=== PATIENT | female | born 1960 | race Caucasian/White ===

== ENCOUNTER 2016-10-08 07:32 | Emergency (ER) | payer SELFPAY ==
[2016-10-08 07:39] VITALS: RESP 16
[2016-10-08] MEDS ORDERED: IPRATROPIUM-ALBUTEROL 3 ML NEB INHALATION STA (08:19)
--- NOTE | 2016-10-08 08:27 | ED ---
General Adult HPI - General Chief complaint: Upper Respiratory Infection Stated complaint: POSS PNEUMONIA/BRONCHITIS Time Seen by Provider: 10/08/16 08:10 Source: patient, RN notes reviewed Mode of arrival: ambulatory Limitations: no limitations - History of Present Illness Initial comments: Patient is a 56-year-old out. She states that she recently came back from a flight from [place] feels that symptoms have worsened since. States were lots of sick people on the flight coughing. Patient admits that she has had some increased tightness in her chest. She does admit to a history of pneumonia and states his symptoms feel similar. She denies any other complaints or symptoms at this time. Patient denies any recent fever, chills, shortness of breath, chest pain, back pain, abdominal pain, nausea or vomiting, numbness or tingling , dysuria or hematuria, constipation or diarrhea, headaches or visual changes, or any other complaints. - Related Data Home Medications Medication Instructions Recorded Confirmed Atenolol [Tenormin] 50 mg PO DAILY 06/02/15 06/02/15 Cetirizine HCl [Zyrtec] 10 mg PO DAILY 06/02/15 10/08/16 Naproxen Sodium [Aleve] 440 mg PO BID 10/08/16 10/08/16 Previous Rx's Medication Instructions Recorded Clindamycin HCl [Cleocin] 300 mg PO Q6HR 10 Days 10/08/16 Fluticasone Propionate [Flonase 1 - 2 spray EA NOSTRIL DAILY 5 Days 10/08/16 Allergy Relief] Allergies Allergy/AdvReac Type Severity Reaction Status Date / Time Penicillins Allergy Unknown Verified 10/08/16 07:39 Sulfa (Sulfonamide Allergy Unknown Verified 10/08/16 07:39 Antibiotics) Review of Systems ROS Statement: Those systems with pertinent positive or pertinent negative responses have been documented in the HPI. ROS Other: All systems not noted in ROS Statement are negative. Past Medical History Past Medical History: Hypertension History of Any Multi-Drug Resistant Organisms: None Reported Past Surgical History: Hysterectomy Additional Past Surgical History / Comment(s): sinus surgery Past Psychological History: No Psychological Hx Reported Smoking Status: Never smoker Past Alcohol Use History: Rare Past Drug Use History: None Reported General Exam - General Exam Comments Initial Comments: General: The patient is awake and alert, in no distress, and does not appear acutely ill. Eye: Pupils are equal, round and reactive to light, extra-ocular movements are intact. No nystagmus. There is normal conjunctiva bilaterally. No signs of icterus. Ears, nose, mouth and throat: There are moist mucous membranes and no oral lesions. Neck: The neck is supple, there is no tenderness or JVD. Cardiovascular: There is a regular rate and rhythm. No murmur, rub or gallop is appreciated. Respiratory: Lungs are clear to auscultation, respirations are non-labored, breath sounds are equal. No wheezes, stridor, rales, or rhonchi. Gastrointestinal: Soft, non-distended, non-tender abdomen without masses or organomegaly noted. There is no rebound or guarding present. No CVA tenderness. Bowel sounds are unremarkable. Musculoskeletal: Normal ROM, no tenderness. Strength 5/5. Sensation intact. Pulses equal bilaterally 2+. Neurological: A&O x 3. CN II-XII intact, There are no obvious motor or sensory deficits. Coordination appears grossly intact. Speech is normal. Skin: Skin is warm and dry and no rashes or lesions are noted. Psychiatric: Cooperative, appropriate mood & affect, normal judgment. Limitations: no limitations Course Vital Signs 10/08/16 10/08/16 10/08/16 07:35 08:36 08:44 Temperature 97.7 F Pulse Rate 67 68 68 Respiratory 16 Rate Blood Pressure 174/87 O2 Sat by Pulse 96 Oximetry 10/08/16 09:31 Temperature Pulse Rate 62 Respiratory 16 Rate Blood Pressure 134/75 O2 Sat by Pulse 95 Oximetry Medical Decision Making - Medical Decision Making Patient reexamined at this time shows no signs of distress. Patient's labs been reviewed are unremarkable. EKG normal sinus rhythm. Patient's chest x- ray negative for any sign of pneumonia. Patient does admit to cough congestion over the 2 months. States worse after flight. D-dimer negative. Patient resting comfortably in the stretcher. Does admit to improvement after breathing treatment. Patient will be treated for sinus infection. She states multiple people sick at home with similar symptoms. Patient does have some ALLERGY. Patient is advised follow-up and return if symptoms increase worsen or for any other concerns. - Lab Data Result diagrams: 10/08/16 09:24 10/08/16 09:24 Lab Results 10/08/16 10/08/16 10/08/16 Range/Units 09:24 09:24 09:24 WBC 2.9 L (3.8-10.6) k/uL RBC 4.68 (3.80-5.40) m/uL Hgb 12.6 (11.4-16.0) gm/dL Hct 37.8 (34.0-46.0) % MCV 80.7 (80.0-100.0) fL MCH 26.9 (25.0-35.0) pg MCHC 33.4 (31.0-37.0) g/dL RDW 12.9 (11.5-15.5) % Plt Count 190 (150-450) k/uL Neutrophils % 57 % Lymphocytes % 31 % Monocytes % 7 % Eosinophils % 1 % Basophils % 1 % Neutrophils # 1.7 (1.3-7.7) k/uL Lymphocytes # 0.9 L (1.0-4.8) k/uL Monocytes # 0.2 (0-1.0) k/uL Eosinophils # 0.0 (0-0.7) k/uL Basophils # 0.0 (0-0.2) k/uL PT (9.0-12.0) sec INR (<1.1) APTT (22.0-30.0) sec D-Dimer (<0.60) mg/L FEU Sodium 141 (137-145) mmol/L Potassium 3.9 (3.5-5.1) mmol/L Chloride 103 (98-107) mmol/L Carbon Dioxide 28 (22-30) mmol/L Anion Gap 10 mmol/L BUN 9 (7-17) mg/dL Creatinine 0.56 (0.52-1.04) mg/dL Est GFR (MDRD) Af Amer >60 (>60 ml/min/1.73 sqM) Est GFR (MDRD) Non-Af >60 (>60 ml/min/1.73 sqM) Glucose 105 H (74-99) mg/dL Calcium 9.2 (8.4-10.2) mg/dL Total Bilirubin 0.5 (0.2-1.3) mg/dL AST 25 (14-36) U/L ALT 32 (9-52) U/L Alkaline Phosphatase 74 (38-126) U/L Total Creatine Kinase 76 (30-135) U/L CK-MB (CK-2) 0.7 (0.0-2.4) ng/mL CK-MB (CK-2) Rel Index 0.9 Troponin I <0.012 (0.000-0.034) ng/mL Total Protein 6.8 (6.3-8.2) g/dL Albumin 4.1 (3.5-5.0) g/dL 10/08/16 Range/Units 09:24 WBC (3.8-10.6) k/uL RBC (3.80-5.40) m/uL Hgb (11.4-16.0) gm/dL Hct (34.0-46.0) % MCV (80.0-100.0) fL MCH (25.0-35.0) pg MCHC (31.0-37.0) g/dL RDW (11.5-15.5) % Plt Count (150-450) k/uL Neutrophils % % Lymphocytes % % Monocytes % % Eosinophils % % Basophils % % Neutrophils # (1.3-7.7) k/uL Lymphocytes # (1.0-4.8) k/uL Monocytes # (0-1.0) k/uL Eosinophils # (0-0.7) k/uL Basophils # (0-0.2) k/uL PT 10.0 (9.0-12.0) sec INR 1.0 (<1.1) APTT 25.4 (22.0-30.0) sec D-Dimer 0.49 (<0.60) mg/L FEU Sodium (137-145) mmol/L Potassium (3.5-5.1) mmol/L Chloride (98-107) mmol/L Carbon Dioxide (22-30) mmol/L Anion Gap mmol/L BUN (7-17) mg/dL Creatinine (0.52-1.04) mg/dL Est GFR (MDRD) Af Amer (>60 ml/min/1.73 sqM) Est GFR (MDRD) Non-Af (>60 ml/min/1.73 sqM) Glucose (74-99) mg/dL Calcium (8.4-10.2) mg/dL Total Bilirubin (0.2-1.3) mg/dL AST (14-36) U/L ALT (9-52) U/L Alkaline Phosphatase (38-126) U/L Total Creatine Kinase (30-135) U/L CK-MB (CK-2) (0.0-2.4) ng/mL CK-MB (CK-2) Rel Index Troponin I (0.000-0.034) ng/mL Total Protein (6.3-8.2) g/dL Albumin (3.5-5.0) g/dL Disposition Clinical Impression: Acute sinusitis Disposition: HOME SELF-CARE Condition: Good Instructions: Upper Respiratory Infection (ED) Additional Instructions: Please use medication as discussed. Please follow-up with family doctor in the next 2 days of symptoms have not improved. Please return to emergency room if the symptoms increase or worsen or for any other concerns. Prescriptions: Clindamycin HCl [Cleocin] 300 mg PO Q6HR 10 Days Fluticasone Propionate [Flonase Allergy Relief] 1 - 2 spray EA NOSTRIL DAILY 5 Days Time of Disposition: 10:37
--- NOTE | 2016-10-08 09:08 | XR ---
EXAMINATION TYPE: XR chest 2V DATE OF EXAM: 10/08/2016 9:01 AM COMPARISON: Prior chest x-ray June 02, 2015 HISTORY: Shortness of breath and cough. History of hypertension. TECHNIQUE: Frontal and lateral views of the chest are obtained. FINDINGS: There is no focal air space opacity, pleural effusion, or pneumothorax seen. The cardiac silhouette size is within normal limits. Multilevel spurring in the spine is redemonstrated. IMPRESSION: No acute cardiopulmonary process.
[2016-10-08] MEDS ORDERED: SODIUM CHLORIDE 0.9% 1,000 ML IV STA ×2 (09:11)
[2016-10-08 09:33] VITALS: PULSE 62
[2016-10-08 09:48] LABS: Basophils % (A) 1 %; CH 27.3; Eosinophils % (A) 1 %; HCT 37.8 % (34.0-46.0); HDW 2.62; HGB 12.6 gm/dL (11.4-16.0); Luc # (Auto) 0.11; Luc % (Auto) 4; Lymphocytes # (A) 0.9 k/uL (1.0-4.8); Lymphocytes % (A) 31 %; MCH 26.9 pg (25.0-35.0); MCHC 33.4 g/dL (31.0-37.0); MCV 80.7 fL (80.0-100.0); Mean Platelet Volume 6.8; Monocytes # (A) 0.2 k/uL (0-1.0); Monocytes % (A) 7 %; Neutrophils # (A) 1.7 k/uL (1.3-7.7); Neutrophils % (A) 57 %; RBC 4.68 m/uL (3.80-5.40); RDW 12.9 % (11.5-15.5); WBC 2.9 k/uL (3.8-10.6); WBC (Perox) 3.13
[2016-10-08 09:54] LABS: ALT 32 U/L (9-52); AST 25 U/L (14-36); Alkaline Phosphatase 74 U/L (38-126); Anion Gap 10 mmol/L; Blood Urea Nitrogen 9 mg/dL (7-17); Calcium 9.2 mg/dL (8.4-10.2); Carbon Dioxide 28 mmol/L (22-30); Chloride 103 mmol/L (98-107); Glucose 105 mg/dL (74-99); Non-African American GFR(MDRD) >60 (>60 ml/min/1.73 sqM); Potassium 3.9 mmol/L (3.5-5.1); Sodium 141 mmol/L (137-145); Total Bilirubin 0.5 mg/dL (0.2-1.3); Total Protein 6.8 g/dL (6.3-8.2)
[2016-10-08 10:00] LABS: Partial Thromboplastin Time 25.4 sec (22.0-30.0)
[2016-10-08 10:04] LABS: Creatine Kinase 76 U/L (30-135)
[2016-10-08 10:17] LABS: Creatine Kinase MB 0.7 ng/mL (0.0-2.4); Troponin I <0.012 ng/mL (0.000-0.034)
[2016-10-08 10:56] VITALS: BP 140/80; TEMP 98.5
== END 2016-10-08 11:13 | disposition home or self-care (01) ==
LOC: EC 07:32
DX: J01.90 Acute sinusitis, unspecified (principal); R07.89 Other chest pain; I10 Essential (primary) hypertension; Z79.1 Long term (current) use of non-steroidal anti-inflammatories (NSAID); Z79.899 Other long term (current) drug therapy; Z88.0 Allergy status to penicillin; Z88.2 Allergy status to sulfonamides; Z98.890 Other specified postprocedural states
CPT/HCPCS: 36415; 71020; 80053; 82550; 82553; 84484; 85025; 85379; 85610; 85730; 93005; 94640; 99284

== ENCOUNTER → 2020-06-05 | Outpatient (CLI) | payer BC | END | disposition home or self-care (01) | LOC: LABWHC1 10:35 | PROVIDERS: ATTEND Nurse Practitioner Adult Health | DX: R05 Cough (principal); R50.9 Fever, unspecified | CPT/HCPCS: U0003; C9803 ==

== ENCOUNTER 2021-12-24 09:11 | Emergency (ER) | payer BC ==
[2021-12-24] MEDS ORDERED: SODIUM CHLORIDE 0.9% 1,000 ML IV STA (09:25)
[2021-12-24] MEDS ORDERED: METOCLOPRAMIDE 5 MG/ML 2 ML VIAL IVP STA (09:26)
[2021-12-24] MEDS ORDERED: MECLIZINE 12.5 MG TAB PO STA (09:26)
--- NOTE | 2021-12-24 09:33 | ED ---
General Adult HPI - General Chief complaint: Weakness Stated complaint: hypertension, lightheaded Time Seen by Provider: 12/24/21 09:19 Source: patient, RN notes reviewed Mode of arrival: ambulatory Limitations: no limitations - History of Present Illness Initial comments: Patient is a pleasant [age]-year-old female presenting to the emergency Department with concerns for headache. Patient has been feeling lightheaded for the past several days, occasional vertigo/spinning type sensation, none at this time. Patient did have headache this started a couple hours ago while at work. Headache is rated 8/10. No nausea vomiting. No history of chronic headaches. No weakness. No confusion. No speech or visual problems. Patient felt when dizziness got worse a few days ago that she was near syncopal. Patient never passed out or lost consciousness. blood pressure was 165/95 - Related Data Home Medications Medication Instructions Recorded Confirmed Biotin 5 mg PO DAILY 12/24/21 12/24/21 Cetirizine HCl [Zyrtec] 10 mg PO DAILY 12/24/21 12/24/21 Cholecalciferol [Vitamin D3 (25 25 mcg PO DAILY 12/24/21 12/24/21 Mcg = 1000 Iu)] Cyanocobalamin (Vitamin B-12) 1,000 mcg PO DAILY 12/24/21 12/24/21 [Vitamin B-12] Furosemide [Lasix] 20 mg PO DAILY PRN 12/24/21 12/24/21 Hydroxychloroquine Sulfate 200 mg PO BID 12/24/21 12/24/21 [Plaquenil] Ibuprofen [Motrin] 800 mg PO Q8H PRN 12/24/21 12/24/21 Multivitamins, Thera [Multivitamin 1 tab PO DAILY 12/24/21 12/24/21 (formulary)] Telmisartan 40 mg PO HS 12/24/21 12/24/21 Allergies Allergy/AdvReac Type Severity Reaction Status Date / Time Penicillins Allergy Rash/Hives Verified 12/24/21 10:51 Sulfa (Sulfonamide Allergy Anaphylaxis Verified 12/24/21 10:51 Antibiotics) Review of Systems ROS Statement: Those systems with pertinent positive or pertinent negative responses have been documented in the HPI. ROS Other: All systems not noted in ROS Statement are negative. Constitutional: Denies: fever Eyes: Denies: eye pain ENT: Denies: ear pain Respiratory: Denies: cough Cardiovascular: Denies: chest pain Endocrine: Denies: fatigue Gastrointestinal: Denies: abdominal pain Genitourinary: Denies: dysuria Musculoskeletal: Denies: back pain Skin: Denies: rash Neurological: Reports: headache, vertigo (Occasional). Denies: weakness, confusion Past Medical History Past Medical History: Hypertension, Rheumatoid Arthritis (RA) History of Any Multi-Drug Resistant Organisms: None Reported Past Surgical History: Cholecystectomy, Hysterectomy Additional Past Surgical History / Comment(s): sinus surgery Past Psychological History: No Psychological Hx Reported Smoking Status: Never smoker Past Alcohol Use History: Occasional Past Drug Use History: Marijuana - Past Family History Father Family Medical History: Cancer, Congestive Heart Failure (CHF), COPD, Diabetes Mellitus General Exam Limitations: no limitations General appearance: alert, in no apparent distress Head exam: Present: atraumatic, normocephalic Eye exam: Present: normal appearance, PERRL, EOMI ENT exam: Present: normal oropharynx Neck exam: Present: normal inspection Respiratory exam: Present: normal lung sounds bilaterally Cardiovascular Exam: Present: regular rate, normal rhythm Expanded Peripheral pulses: 2+: Radial (R), Radial (L), Posterior Tibialis (R), Posterior Tibialis (L) GI/Abdominal exam: Present: soft. Absent: tenderness, guarding Extremities exam: Present: normal inspection. Absent: pedal edema, calf tenderness Neurological exam: Present: alert, oriented X3, CN II-XII intact. Absent: motor sensory deficit Expanded Neurological exam: Present: protecting the airway Patient oriented to: Present: person, place, time Speech: Present: fluid speech Cranial nerves: EOM's Intact: Normal, Facial Sensation: Normal Sensory exam: Upper Extremity Light Touch: Normal, Lower Extremity Light Touch: Normal Motor strength exam: RUE: 5, LUE: 5, RLE: 5, LLE: 5 Eye Response: (4) open spontaneously Motor Response: (6) obeys commands Verbal Response: (5) oriented Psychiatric exam: Present: normal affect, normal mood Skin exam: Present: normal color Course Vital Signs 12/24/21 12/24/21 12/24/21 09:14 10:33 11:07 Temperature 97.9 F 98.1 F Pulse Rate 70 66 69 Respiratory 16 20 18 Rate Blood Pressure 157/90 173/84 172/89 O2 Sat by Pulse 97 98 100 Oximetry 12/24/21 12:01 Temperature 97.6 F Pulse Rate 60 Respiratory 16 Rate Blood Pressure 167/97 O2 Sat by Pulse 98 Oximetry EKG Findings - EKG Comments: EKG Findings:: Sinus rhythm with rate of 60. First-degree AV block W[place] 203. QRS 105. QT 421. QTC 422. Normal axis. Normal QRS. No acute ST change. Medical Decision Making - Medical Decision Making Patient feeling much better and requesting discharge. Patient updated on results and follow-up. - Lab Data Result diagrams: 12/24/21 10:17 12/24/21 10:17 Lab Results 12/24/21 12/24/21 12/24/21 Range/Units 10:17 10:17 10:17 WBC 7.0 (3.8-10.6) k/uL RBC 4.71 (3.80-5.40) m/uL Hgb 12.6 (11.4-16.0) gm/dL Hct 38.8 (34.0-46.0) % MCV 82.4 (80.0-100.0) fL MCH 26.8 (25.0-35.0) pg MCHC 32.6 (31.0-37.0) g/dL RDW 12.4 (11.5-15.5) % Plt Count 214 (150-450) k/uL MPV 7.4 Neutrophils % 67 % Lymphocytes % 25 % Monocytes % 5 % Eosinophils % 1 % Basophils % 1 % Neutrophils # 4.6 (1.3-7.7) k/uL Lymphocytes # 1.8 (1.0-4.8) k/uL Monocytes # 0.4 (0-1.0) k/uL Eosinophils # 0.1 (0-0.7) k/uL Basophils # 0.1 (0-0.2) k/uL PT 10.0 (9.0-12.0) sec INR 0.9 (<1.2) APTT 24.6 (22.0-30.0) sec Sodium 138 (137-145) mmol/L Potassium 3.6 (3.5-5.1) mmol/L Chloride 101 (98-107) mmol/L Carbon Dioxide 27 (22-30) mmol/L Anion Gap 10 mmol/L BUN 19 H (7-17) mg/dL Creatinine 0.62 (0.52-1.04) mg/dL Est GFR (CKD-EPI)AfAm >90 (>60 ml/min/1.73 sqM) Est GFR (CKD-EPI)NonAf >90 (>60 ml/min/1.73 sqM) Glucose 89 (74-99) mg/dL Calcium 9.9 (8.4-10.2) mg/dL Total Bilirubin 0.4 (0.2-1.3) mg/dL AST 25 (14-36) U/L ALT 18 (4-34) U/L Alkaline Phosphatase 93 (38-126) U/L Total Protein 7.8 (6.3-8.2) g/dL Albumin 5.0 (3.5-5.0) g/dL - Radiology Data Radiology results: report reviewed (CT brain shows no acute process. CT angios is no significant abnormality. Mild arythematous change carotid bulb.) Disposition Clinical Impression: Cephalgia, Lightheadedness Disposition: HOME SELF-CARE Condition: Stable Instructions (If sedation given, give patient instructions): Acute Headache (ED), Lightheadedness (ED) Additional Instructions: Please do follow-up with your primary care physician in the next day or 2 for recheck, number provided. Return for increased dizziness, falling, confusion, weakness, headache, worsening or changing symptoms or other concerns. Is patient prescribed a controlled substance at d/c from ED?: No Referrals: Wilmar Herron MD [STAFF PHYSICIAN] - 1-2 days Scott Felder III, MD [STAFF PHYSICIAN] - 1-2 days Time of Disposition: 12:55
[2021-12-24 10:31] LABS: Basophils # (A) 0.1 k/uL (0-0.2); Basophils % (A) 1 %; Eosinophils # (A) 0.1 k/uL (0-0.7); Eosinophils % (A) 1 %; HCT 38.8 % (34.0-46.0); HGB 12.6 gm/dL (11.4-16.0); Lymphocytes # (A) 1.8 k/uL (1.0-4.8); Lymphocytes % (A) 25 %; MCH 26.8 pg (25.0-35.0); MCHC 32.6 g/dL (31.0-37.0); MCV 82.4 fL (80.0-100.0); Mean Platelet Volume 7.4; Monocytes # (A) 0.4 k/uL (0-1.0); Monocytes % (A) 5 %; Neutrophils # (A) 4.6 k/uL (1.3-7.7); Neutrophils % (A) 67 %; Platelet Count 214 k/uL (150-450); RBC 4.71 m/uL (3.80-5.40); RDW 12.4 % (11.5-15.5)
[2021-12-24 10:40] LABS: INR 0.9 (<1.2); Partial Thromboplastin Time 24.6 sec (22.0-30.0)
[2021-12-24 10:41] LABS: ALT 18 U/L (4-34); AST 25 U/L (14-36); African American GFR (CKD) >90 (>60 ml/min/1.73 sqM); Alkaline Phosphatase 93 U/L (38-126); Anion Gap 10 mmol/L; Blood Urea Nitrogen 19 mg/dL (7-17); Calcium 9.9 mg/dL (8.4-10.2); Carbon Dioxide 27 mmol/L (22-30); Chloride 101 mmol/L (98-107); Glucose 89 mg/dL (74-99); Non-African American GFR(CKD) >90 (>60 ml/min/1.73 sqM); Potassium 3.6 mmol/L (3.5-5.1); Sodium 138 mmol/L (137-145); Total Bilirubin 0.4 mg/dL (0.2-1.3); Total Protein 7.8 g/dL (6.3-8.2)
[2021-12-24] MEDS ORDERED: diphenhydrAMINE 50 MG/ML 1 ML VIAL IVP STA (10:47)
--- NOTE | 2021-12-24 11:07 | CT ---
EXAMINATION TYPE: CT brain wo con DATE OF EXAM: 12/24/2021 HISTORY: HTN. Syncopal episode. Headache. CT DLP: 1158.4 mGycm. Automated Exposure Control for Dose Reduction was Utilized. TECHNIQUE: CT scan of the head is performed without contrast. COMPARISON: CT brain June 02, 2015. FINDINGS: There is no acute intracranial hemorrhage or midline shift identified. There is mild diff use ventricular and sulcal prominence consistent with diffuse age-related cerebral atrophy. Reynolds-whit e matter differentiation is maintained. There there is a small mucous retention cyst or polyp in the inferior left maxillary sinus axial image 10 otherwise paranasal sinuses are clear. Globes are intact bilaterally. IMPRESSION: No acute intracranial hemorrhage or midline shift. No significant change from prior.
[2021-12-24 12:03] VITALS: TEMP 97.6
--- NOTE | 2021-12-24 12:11 | CT ---
EXAMINATION TYPE: CT angio head neck DATE OF EXAM: 12/24/2021 HISTORY: Headache, Dizziness, Syncopal episode COMPARISON: CT brain same date CT DLP: 731.8 mGycm. Automated Exposure Control for Dose Reduction was Utilized. TECHNIQUE: CTA scan of the head and neck is performed without and with IV Contrast, patient injected with 65 ml mL of Isovue 370, axial images are obtained, coronal and sagittal reformatted images are reviewed. 3D reconstructed images are created on an independent workstation and reviewed. FINDINGS: Carotid/Vascular Structures: Transverse aorta, innominate artery, left and right common carotid, left and right subclavian arteries are widely patent, vertebral arteries are patent, internal and externa l carotid arteries are patent, atheromatous changes present at the origin of the proximal internal ca rotid artery in the right. Approximately 50% diameter reduction is suspected of the proximal internal carotid artery on the right, no significant stenosis on the left. Anterior posterior circulation patent within the brain. No evident stenosis, aneurysm, dissection, or embolus Other: Air within the right subclavian vein likely due to intravenous administration during the cour se of the exam. IMPRESSION: No significant abnormality is seen. Mild atheromatous change of the carotid bulb, proxim al internal carotid artery on the right, carotid artery Doppler duplex could be performed for confirm ation of mild stenosis NASCET criteria was used in interpretation of this exam?
[2021-12-24] MEDS ORDERED: KETOROLAC 15 MG/ML 1 ML VIAL IVP STA (12:16)
[2021-12-24 13:23] VITALS: BP 154/87; PULSE 65; RESP 18
== END 2021-12-24 13:16 | disposition home or self-care (01) ==
LOC: EC 09:11
DX: R51.9 Headache, unspecified (principal); R42 Dizziness and giddiness; I10 Essential (primary) hypertension; Z88.0 Allergy status to penicillin; Z88.2 Allergy status to sulfonamides; Z79.899 Other long term (current) drug therapy
CPT/HCPCS: 36415; 93005; 80053; 85025; 85610; 85730; 70496; 70450; 70498; 99284; 96374; 96375; 96361; J1200; J2765; J1885; Q9967

== ENCOUNTER → 2022-02-14 | Outpatient (CLI) | payer BC ==
--- NOTE | 2022-02-15 09:48 | CA ---
Stress Echo Report Taryn Cross Age: 61 Gender: F : 1960 Exam Date: 02/14/2022 09:39 Exam Location: [facility] Stress Ht (in): 63 Wt (lb): 209 Ordering Physician: Wilmar Herron MD Referring Physician: Wilmar Herron MD [employer] Ironworker: Bharati Alcaraz RDCS Technologist Procedure CPT: Indication: R0789 ICD-9 Codes: Rhythm: Patient History: Syncope, Chest pressure Cardiac Medications: Medications in past 24 hours: Contrast: Stress Results Protocol: Nlis Total dose(mL): Exercise Duration (min:sec): 8.[address] Depression (mm): Angina Score: Das Score: METS: 10.3 Resting HR: 72 Resting BP: 151 / 78 Peak HR: 137 Peak BP: 181 / 80 Max Predicted HR: 157 87 % Max Predicted HR Target HR: 133 Double Product: 36095 Stress Summary: BP Response: Reason for Termination: Reached target heart rate or work-load Cardiac Symptoms: Dyspnea ECG Analysis Resting ECG: Normal sinus rhythm without any significant ST-T changes Stress ECG: Sinus tachycardia without any ST segment changes to suggest ischemia Arrhythmia: No significant arrhythmia Echo Analysis Resting Echo: Normal wall motion wall thickening of all segments Peak Echo Analysis: Good augmentation of left ventricular wall motion wall thickening of all segments MEASUREMENTS (Male/Female) Normal Values CONCLUSIONS Patient walked for 8 minutes 56 seconds on a standard Nils protocol and achieved a maximal heart rate of 137 bpm which is more than 85% of predicted maximal. He did not have any anginal symptoms. He had some shortness of breath at peak exercise. There were no ST segment changes to indicate ischemia. There was no significant arrhythmia. This is a negative stress test with fair exercise capacity Baseline echo images reveal normal wall motion wall thickening of all segments. At peak exercise there was good augmentation of wall motion wall thickening of all segments suggesting that there is no evidence of stress-induced ischemia on this study Normal stress test by EKG criteria with fair exercise capacity Normal stress echocardiogram without evidence of ischemia Dr. Bee Betancur MD (Electronically Signed) Final Date: 15 February 2022 09:47
== END | disposition home or self-care (01) ==
LOC: RADNMMAIN 09:09
PROVIDERS: ATTEND Family Medicine
DX: R07.89 Other chest pain (principal)
CPT/HCPCS: 93351

== ENCOUNTER 2022-07-05 09:33 | Day surgery (SDC) | payer BC ==
[2022-06-29 15:48] VITALS: BMI 37.2
[~2022-07-05 09:33] MED LIST: LACTATED RINGERS 1,000 ML IV SCH
[2022-07-05 09:58] VITALS: TEMP 97.7
[2022-07-05] MEDS ORDERED: LIDOCAINE 2% INJ 20 MG/ML (2 ML VIAL) ONE (10:40)
[2022-07-05] MEDS ORDERED: PROPOFOL 10 MG/ML 20 ML VIAL IV ONE (10:40)
--- NOTE | 2022-07-05 10:42 | P.GSHP ---
History of Present Illness H&P Date: 07/05/22 Chief Complaint: Colon cancer screening 62-year-old female here today for colonoscopy. She had a colonoscopy at age 48 that was normal. Patient with intermittent loose stools after her gallbladder surgery a few years ago. No family history of colon cancer. Past Medical History Past Medical History: Hypertension, Rheumatoid Arthritis (RA) Additional Past Medical History / Comment(s): foot fracture right s/p fall History of Any Multi-Drug Resistant Organisms: None Reported Past Surgical History: Cholecystectomy, Hysterectomy Additional Past Surgical History / Comment(s): sinus surgery, foot surgery Past Anesthesia/Blood Transfusion Reactions: Postoperative Nausea & Vomiting (PONV) Smoking Status: Never smoker - Past Family History Father Family Medical History: Cancer, Congestive Heart Failure (CHF), COPD, Diabetes M ellitus Medications and Allergies Home Medications Medication Instructions Recorded Confirmed Type Biotin 5 mg PO DAILY 12/24/21 06/29/22 History Cetirizine HCl [Zyrtec] 10 mg PO DAILY 12/24/21 06/29/22 History Cholecalciferol [Vitamin D3 (25 25 mcg PO DAILY 12/24/21 06/29/22 History Mcg = 1000 Iu)] Cyanocobalamin (Vitamin B-12) 1,000 mcg PO DAILY 12/24/21 06/29/22 History [Vitamin B-12] Furosemide [Lasix] 20 mg PO DAILY PRN 12/24/21 06/29/22 History Hydroxychloroquine Sulfate 200 mg PO BID 12/24/21 06/29/22 History [Plaquenil] Ibuprofen [Motrin] 800 mg PO Q8H PRN 12/24/21 06/29/22 History Multivitamins, Thera [Multivitamin 1 tab PO DAILY 12/24/21 06/29/22 History (formulary)] Telmisartan 40 mg PO HS 12/24/21 06/29/22 History Allergies Allergy/AdvReac Type Severity Reaction Status Date / Time Penicillins Allergy Rash/Hives Verified 07/05/22 09:53 Sulfa (Sulfonamide Allergy Anaphylaxis Verified 07/05/22 09:53 Antibiotics) Surgical - Exam Vital Signs Temp Pulse Resp BP Pulse Ox 97.7 F 70 16 171/80 98 07/05/22 09:57 07/05/22 09:57 07/05/22 09:57 07/05/22 09:57 07/05/22 09:57 Physical exam: General: Well-developed, well-nourished HEENT: Normocephalic, sclerae nonicteric Abdomen: Nontender, nondistended Extremities: No edema Neuro: Alert and oriented Assessment and Plan (1) Colon cancer screening Narrative/Plan: Will proceed with colonoscopy Current Visit: Yes Status: Acute Code(s): Z12.11 - ENCOUNTER FOR SCREENING FOR MALIGNANT NEOPLASM OF COLON SNOMED Code(s): 443513078
--- NOTE | 2022-07-05 10:57 | P.PCN ---
Date of Procedure: 07/05/22 Procedure(s) Performed: PREOPERATIVE DIAGNOSIS: Colon cancer screening POSTOPERATIVE DIAGNOSIS: Mild diverticulosis PROCEDURE: Colonoscopy with random biopsy ANESTHESIA: MAC SURGEON: Terell Mcbride M.D. SPECIMENS: Random colon biopsy ENDOSCOPIC PROCEDURE: The patient was placed on the endoscopy table in the left decubitus position. The Olympus colonoscope was inserted into the anus and passed under direct visualization to the base of the cecum. The appendiceal orifice was visualized. From that point the scope was slowly withdrawn inspecting all surfaces carefully. There were no neoplastic inflammatory or polypoid lesions throughout the cecum, ascending, transverse, descending, sigmoid and rectum. There was mild scattered diverticulosis noted. Random biopsies were taken to evaluate for the loose stools. Digital rectal examination was normal. The patient was taken to the recovery room in stable condition per anesthesia guidelines. RECOMMENDATIONS: Await biopsy results. Begin colestipol for loose stools after previous cholecystectomy.
[2022-07-05 11:23] VITALS: BP 126/73; PULSE 62; RESP 14
== END 2022-07-05 11:30 | disposition home or self-care (01) ==
LOC: ORWHC2ENDO 09:33
PROVIDERS: ATTEND Surgery
DX: Z12.11 Encounter for screening for malignant neoplasm of colon (principal); I10 Essential (primary) hypertension; K57.30 Diverticulosis of large intestine without perforation or abscess without bleeding; M06.9 Rheumatoid arthritis, unspecified; Z90.710 Acquired absence of both cervix and uterus; Z90.49 Acquired absence of other specified parts of digestive tract; Z82.49 Family history of ischemic heart disease and other diseases of the circulatory system; Z79.1 Long term (current) use of non-steroidal anti-inflammatories (NSAID); Z88.0 Allergy status to penicillin; Z88.2 Allergy status to sulfonamides; Z79.899 Other long term (current) drug therapy; Z98.890 Other specified postprocedural states
CPT/HCPCS: 88305; 45380; J2704; J2001

== ENCOUNTER → 2022-12-05 | Outpatient (CLI) | payer OTHER ==
--- NOTE | 2022-12-05 17:13 | USB ---
Reason for Exam: Additional evaluation requested from abnormal screening. Patient History: Menarche at age 11. First Full-Term at age 27. Left ovary removed at age 49. Right ovary removed at age 49. Hysterectomy at age 49. Postmenopausal. Used Unspecified Hormone. Risk Values: Lisa 5 year model risk: 1.8%. NCI Lifetime model risk: 7.2%. Technique: Method: Targeted. Prior Study Comparison: 04/28/2003 Bilateral Screening Mammogram, [facility]. 09/14/2005 Bilateral Screening Mammogram, [facility]. 11/25/2022 Bilateral MG screening mammo w CAD, [facility]. Findings: The upper outer quadrant of the right breast, the axilla of the right breast and the retroareolar of the right breast were scanned. There is a hypoechoic area with a hyperdense anechoic center measuring 0.6 x 0.7 x 0.3 cm. This appears to correspond to the mammographic finding 9:00 position 13 cm from the nipple. Overall Assessment: Benign, BI-RAD 2 Management: Screening Mammogram of both breasts in 1 year. A clinical breast exam by your physician is recommended on an annual basis and results should be correlated with mammographic findings. This exam should not preclude additional follow-up of suspicious palpable abnormalities. Results were given to the patient verbally at the time of exam. Electronically signed and approved by: Ariel Roth D.O. Radiologis
== END | disposition home or self-care (01) ==
LOC: RADUSWWP 09:34
PROVIDERS: ATTEND Family Medicine
DX: N63.11 Unspecified lump in the right breast, upper outer quadrant (principal); R92.8 Other abnormal and inconclusive findings on diagnostic imaging of breast; Z78.0 Asymptomatic menopausal state; Z90.721 Acquired absence of ovaries, unilateral

== ENCOUNTER → 2023-02-02 | Outpatient (CLI) | payer OTHER ==
[2023-02-02 15:30] LABS: Basophils # (A) 0.04 X 10*3/uL (0.00-0.10); Basophils % (A) 0.6 %; Eosinophils # (A) 0.06 X 10*3/uL (0.04-0.35); Eosinophils % (A) 0.8 %; HCT 39.5 % (37.2-46.3); HGB 12.7 d/dL (12.0-15.0); Lymphocytes # (A) 2.04 X 10*3/uL (0.90-5.00); Lymphocytes % (A) 28.7 %; MCH 27.1 pg (27.0-32.0); MCHC 32.2 d/dL (32.0-37.0); MCV 84.4 FL (80.0-97.0); Mean Platelet Volume 10.2 FL (9.5-12.2); Monocytes # (A) 0.43 X 10*3/uL (0.20-1.00); Monocytes % (A) 6.1 %; NRBC Per 100 WBC 0 X 10*3/uL (0.00-0.01); Neutrophils % (A) 63.4 %; Platelet Count 268 X 10*3/uL (140-440); RBC 4.68 X 10*6/uL (4.10-5.20); RDW 13.1 % (11.5-14.5)
[2023-02-02 15:55] LABS: ALT 21 U/L (8-44); AST 19 U/L (13-35); Albumin 4.9 d/dL (3.8-4.9); Albumin/Globulin Ratio 1.96 Ratio (1.60-3.17); Alkaline Phosphatase 111 U/L (41-126); BUN/Creat Ratio 18.67 Ratio (12.00-20.00); Blood Urea Nitrogen 11.2 mg/dL (9.0-27.0); Carbon Dioxide 26.9 mmol/L (21.6-31.8); Chloride 98 mmol/L (96-109); Globulin 2.5 d/dL (1.6-3.3); Glucose 90 mg/dL (70-110); Potassium 4.4 mmol/L (3.5-5.5); Sodium 140 mmol/L (135-145); Total Bilirubin 0.5 mg/dL (0.3-1.2); Total Protein 7.4 d/dL (6.2-8.2)
[2023-02-02 16:16] LABS: Erythrocyte Sedimentation Rate 20 mm/Hr (0-30)
[2023-02-02 17:46] LABS: Gliadin AB IgA, Deaminated Negative (Negative); Gliadin AB IgA, Unit <0.5 U/mL; Gliadin AB IgG, Deaminated Negative (Negative); Gliadin AB IgG, Unit <0.4 U/mL
== END | disposition home or self-care (01) ==
LOC: LABWHC1 08:36
PROVIDERS: ATTEND Internal Medicine Gastroenterology
DX: K52.9 Noninfective gastroenteritis and colitis, unspecified (principal)
CPT/HCPCS: 36415; 80053; 83516; 85025; 85652; 86140

== ENCOUNTER → 2024-04-01 | Outpatient (CLI) | payer MEDICARE ==
--- NOTE | 2024-04-02 13:54 | MM ---
Reason for Exam: Screening (asymptomatic). Last mammogram was performed 1 year(s) and 4 month(s) ago. Patient History: Menarche at age 11. First Full-Term at age 27. Left ovary removed at age 49. Right ovary removed at age 49. Hysterectomy at age 49. Postmenopausal. Used Unspecified Hormone. Father had breast cancer. Risk Values: Lisa 5 year model risk: 1.8%. NCI Lifetime model risk: 6.9%. Prior Study Comparison: 04/28/2003 Bilateral Screening Mammogram, [facility]. 09/14/2005 Bilateral Screening Mammogram, [facility]. 11/25/2022 Bilateral MG screening mammo w CAD, [facility]. Tissue Density: The breasts are almost entirely fatty. Findings: Analyzed By CAD. There is no suspicious group of microcalcifications or new suspicious mass in either breast. Overall Assessment: Negative, BI-RAD 1 Management: Screening Mammogram of both breasts in 1 year. . Patient should continue monthly self-breast exams. A clinical breast exam by your physician is recommended on an annual basis. This exam should not preclude additional follow-up of suspicious palpable abnormalities. Note on Lisa scores and lifetime risk: 1. A Lisa score greater than 3% is considered moderate risk. If this is the case, consider specialist referral to assess eligibility for a risk reducing agent. 2. If overall lifetime risk for the development of breast cancer is 20% or higher, the patient may qualify for future screening with alternating mammogram and breast MRI. Electronically signed and approved by: Ran Hdez M.D. Radiologis
--- NOTE | 2024-04-03 09:59 | BD ---
EXAMINATION TYPE: Axial Bone Density DATE OF EXAM: 04/01/2024 CLINICAL HISTORY: 63 years old Female. ICD-10 CODE: Z78.0 ASYMP [place] Height: 63 Weight: 187 FRAX RISK QUESTIONS: Alcohol (3 or more units per day): no Family History (Parent hip fracture): no Glucocorticoids (More than 3mos): no (Ex: prednisone, prednisolone, methylprednisolone, dexamethasone, and hydrocortisone). History of Fracture in Adulthood: yes Secondary Osteoporosis: 1. Type 1 Diabetes: no 2. Hyperthyroidism: no 3. Menopause before 45: no 4. Malnutrition: no 5. Chronic liver disease: no Rheumatoid Arthritis: no Current Tobacco Use: no RISK FACTORS HISTORY OF: Surgery to Spine/Hip(right/left)/Wrist (right/left): no EXAM MEASUREMENTS: Bone mineral densitometry was performed using the [employer] System. Bone mineral density as measured about the Lumbar spine is: ----- L1-L4(G/cm2): 1.097 T Score Values are as follows: ----- L1: -0.3 ----- L2: -1.0 ----- L3: -1.0 ----- L4: -0.6 ----- L1-L4: -0.7 Z Score Values are as follows: ----- L1: 0.7 ----- L2: -0.1 ----- L3: -0.1 ----- L4: 0.3 ----- L1-L4: 0.2 Bone mineral density : baseline Bone mineral density about the R hip (g/cm2): 0.933 Bone mineral density about the L hip (g/cm2): 1.025 T Score values are as follows: -----R Neck: -1.6 -----L Neck: -0.3 -----R Total: -0.6 -----L Total: 0.1 Z Score values are as follows: -----R Neck: -0.6 -----L Neck: 0.7 -----R Total: 0.2 -----L Total: 0.9 Bone mineral density : baseline FRAX%s: The graph provided illustrates a 14.6% chance for a major osteoporotic fx and a 1.7% chance f or the hips probability for fx in 10 years time. IMPRESSION: Normal (Values between +1 and -1 indicate normal bone mass). Consider repeating this study in 5 year s or sooner if there is some new clinical indication. NOTE: T-SCORE=SD OF THE YOUNG ADULT MEAN.
== END | disposition home or self-care (01) ==
LOC: RADMAMWWP 13:09
PROVIDERS: ATTEND Family Medicine
DX: Z12.31 Encounter for screening mammogram for malignant neoplasm of breast (principal); Z78.0 Asymptomatic menopausal state; M85.89 Other specified disorders of bone density and structure, multiple sites; Z80.3 Family history of malignant neoplasm of breast; Z90.722 Acquired absence of ovaries, bilateral
CPT/HCPCS: 77063; 77067; 77080

== ENCOUNTER 2024-11-15 14:26 | Emergency (ER) | payer MEDICARE ==
[2024-11-15] MEDS: LIDOCAINE/EPINEPHR/TETRACAINE 5 ML BOTTLE TOPICAL ONE (15:21)
[2024-11-15] MEDS: DIPH,PERTUS(ACELL)TETVAC-LF 0.5 ML VIAL IM ONE (15:23)
[2024-11-15] MEDS: TOPICAL SKIN ADHESIVE 1 EACH AMP TOPICAL ONE (15:23)
--- NOTE | 2024-11-15 15:55 | ED ---
General Adult HPI - General Chief complaint: Wound/Laceration Stated complaint: L hand lac Time Seen by Provider: 11/15/24 14:32 Source: patient, RN notes reviewed Mode of arrival: ambulatory Limitations: no limitations - History of Present Illness Initial comments: 64-year-old female presents to the emergency department for evaluation of thumb laceration. Patient states that she was cutting a watermelon today when she accidentally cut her thumb. She states that she put pressure on the wound and cleaned it at home. She has full range of motion to the finger. She is not on blood thinners. She is unsure when she last had a tetanus vaccine. - Related Data Home Medications Medication Instructions Recorded Confirmed Biotin 5 mg PO DAILY 12/24/21 06/29/22 Cetirizine HCl [Zyrtec] 10 mg PO DAILY 12/24/21 06/29/22 Cholecalciferol [Vitamin D3 (25 25 mcg PO DAILY 12/24/21 06/29/22 Mcg = 1000 Iu)] Cyanocobalamin (Vitamin B-12) 1,000 mcg PO DAILY 12/24/21 06/29/22 [Vitamin B-12] Furosemide [Lasix] 20 mg PO DAILY PRN 12/24/21 06/29/22 Hydroxychloroquine Sulfate 200 mg PO BID 12/24/21 06/29/22 [Plaquenil] Ibuprofen [Motrin] 800 mg PO Q8H PRN 12/24/21 06/29/22 Multivitamins, Thera [Multivitamin 1 tab PO DAILY 12/24/21 06/29/22 (formulary)] Telmisartan 40 mg PO HS 12/24/21 06/29/22 Previous Rx's Medication Instructions Recorded Colestipol [Colestid] 5 gm PO BID #60 packet 07/05/22 Allergies Allergy/AdvReac Type Severity Reaction Status Date / Time Penicillins Allergy Rash/Hives Verified 11/15/24 14:29 Sulfa (Sulfonamide Allergy Anaphylaxis Verified 11/15/24 14:29 Antibiotics) Review of Systems ROS Statement: Those systems with pertinent positive or pertinent negative responses have been documented in the HPI. ROS Other: All systems not noted in ROS Statement are negative. Past Medical History Past Medical History: Hypertension, Rheumatoid Arthritis (RA) Additional Past Medical History / Comment(s): foot fracture right s/p fall History of Any Multi-Drug Resistant Organisms: None Reported Past Surgical History: Cholecystectomy, Hysterectomy Additional Past Surgical History / Comment(s): sinus surgery Past Anesthesia/Blood Transfusion Reactions: Postoperative Nausea & Vomiting (PONV) Past Psychological History: No Psychological Hx Reported Smoking Status: Never smoker Past Alcohol Use History: None Reported Past Drug Use History: None Reported - Past Family History Father Family Medical History: Cancer, Congestive Heart Failure (CHF), COPD, Diabetes Mellitus General Exam Limitations: no limitations General appearance: alert, in no apparent distress Head exam: Present: atraumatic, normocephalic, normal inspection Eye exam: Present: normal appearance, PERRL, EOMI. Absent: scleral icterus, conjunctival injection, periorbital swelling Extremities exam: Present: full ROM, normal capillary refill, other (1 cm flap laceration to the distal left thumb). Absent: tenderness, pedal edema, joint swelling, calf tenderness Neurological exam: Present: alert, oriented X3 Psychiatric exam: Present: normal affect, normal mood Skin exam: Present: warm, dry. Absent: intact (See above) Course Vital Signs 11/15/24 11/15/24 14:27 16:02 Temperature 98.1 F Pulse Rate 72 70 Respiratory 18 16 Rate Blood Pressure 173/87 158/79 O2 Sat by Pulse 98 98 Oximetry Medical Decision Making - Medical Decision Making Was pt. sent in by a medical professional or institution (Dr. PA, GRAB JACK WORKER, urgent care, hospital, or penitentiary...) When possible be specific @ -No Did you speak to anyone other than the patient for history (EMS, parent, family, police, friend...)? What history was obtained from this source @ -No Did you review nursing and triage notes (agree or disagree)? Why? @ -I reviewed and agree with nursing and triage notes Were old charts reviewed (outside hosp., previous admission, EMS record, old EKG, old radiological studies, urgent care reports/EKG's, penitentiary records)? Report findings @ -No old charts were reviewed Differential Diagnosis (chest pain, altered mental status, abdominal pain women, abdominal pain men, vaginal bleeding, weakness, fever, dyspnea, syncope, headache, dizziness, GI bleed, back pain, seizure, CVA, palpatations, mental health, musculoskeletal)? @ -Laceration, abrasion, tetanus prophy, fracture, this list is not all inclusive EKG interpreted by me (3pts min.). @ -None X-rays interpreted by me (1pt min.). @ -None done CT interpreted by me (1pt min.). @ -None done U/S interpreted by me (1pt. min.). @ -None done What testing was considered but not performed or refused? (CT, X-rays, U/S, labs)? Why? @ -None What meds were considered but not given or refused? Why? @ -None Did you discuss the management of the patient with other professionals (professionals i.e. , PA, [employer] J[employer] WORKER, lab, RT, psych nurse, medical social consultant, senior engineering manager, teacher, national service officer, disease case manager rn)? Give summary @ -No Was smoking cessation discussed for >3mins.? @ -No Was critical care preformed (if so, how long)? @ -No Were there social determinants of health that impacted care today? How? (Homelessness, low income, unemployed, alcoholism, drug addiction, transportation, low edu. Level, literacy, decrease access to med. care, [place] [facility], rehab)? @ -No Was there de-escalation of care discussed even if they declined (Discuss DNR or withdrawal of care, Hospice)? DNR status @ -No What co-morbidities impacted this encounter? (DM, HTN, Smoking, COPD, CAD, Cancer, CVA, ARF, Chemo, Hep., AIDS, mental health diagnosis, sleep apnea, m orbid obesity)? @ -None Was patient admitted / discharged? Hospital course, mention meds given and route, prescriptions, significant lab abnormalities, going to OR and other pertinent info. @ -Discharge. Patient presented emergency department for evaluation of some laceration. The wound was cleaned. Skin adhesive was applied. She was updated on tetanus vaccine. Patient will be discharged home. She is understanding agreeable with plan. Patient stable at time of discharge. Case discussed with Dr. Christianson Undiagnosed new problem with uncertain prognosis? @ -No Drug Therapy requiring intensive monitoring for toxicity (Heparin, Nitro, Insulin, Cardizem)? @ -No Were any procedures done? @ -No Diagnosis/symptom? @ -Laceration] Acute, or Chronic, or Acute on Chronic? @ -Acute Uncomplicated (without systemic symptoms) or Complicated (systemic symptoms)? @ -Uncomplicated Side effects of treatment? @ -No Exacerbation, Progression, or Severe Exacerbation? @ -No Poses a threat to life or bodily function? How? (Chest pain, [place], [place], pneumonia, PE, COPD, DKA, ARF, appy, cholecystitis, CVA, Diverticulitis, Homicidal, Suicidal, threat to staff... and all critical care pts) @ -No Disposition Clinical Impression: Laceration Disposition: HOME SELF-CARE Condition: Stable Instructions (If sedation given, give patient instructions): Skin Adhesive Care (ED) Additional Instructions: Please keep wound clean and dry Be on the look out for signs of infection including redness, discharge, increased pain. Please follow-up with your primary care provider. Return to the emergency department for new or worsening symptoms. Is patient prescribed a controlled substance at d/c from ED?: No Referrals: Wilmar Herron MD [Primary Care Provider] - 1-2 days
[2024-11-15 16:03] VITALS: BP 158/79; PULSE 70; RESP 16; TEMP 98.1
== END 2024-11-15 16:04 | disposition home or self-care (01) ==
LOC: EC 14:26
DX: S61.012A Laceration without foreign body of left thumb without damage to nail, initial encounter (principal); Z23 Encounter for immunization; Z88.0 Allergy status to penicillin; Z88.2 Allergy status to sulfonamides; W26.9XXA Contact with unspecified sharp object(s), initial encounter
CPT/HCPCS: 12001; 90471; 90715; 99283